=== PATIENT | male | born 1965 | race Hispanic/Latino ===

== ENCOUNTER 2020-09-22 18:41 | Inpatient (IN) | payer SELFPAY ==
[~2020-09-22] VITALS: Ht 170.2 cm; Wt 88.5 kg
[2020-09-22 18:56] LABS: APPEARANCE,URINE Clear (CLEAR); BILIRUBIN,URINE Negative (NEGATIVE); COLOR,URINE Yellow (YELLOW); GLUCOSE, URINE (UA) >=1000 mg/dL (NEGATIVE); KETONES,URINE Negative (NEGATIVE); LEUKOCYTE ESTERASE ,URINE Negative (NEGATIVE); NITRATE,URINE Negative (NEGATIVE); OCCULT BLOOD,URINE Negative (NEGATIVE); PH,URINE 6.5 (5.0-8.0); PROTEIN,URINE Negative (NEGATIVE); UROBILINOGEN,URINE 0.2 mg/dL (0.2-1.0)
[2020-09-22 19:02] LABS: BACTERIA,URINE Rare /HPF (None Seen); RBC,URINE 0-1 /HPF (0-1); SQUAMOUS EPITHELIAL CELL,UR Rare /HPF (0-2); WBC,URINE 0-1 /HPF (0-1); YEAST,URINE BUDDING Rare /HPF (None Seen)
[2020-09-22 19:04] LABS: BASOPHILS % (AUTO) 0.9 % (0.0-5.0); EOSINOPHILS % (AUTO) 3.1 % (0.0-8.0); HEMATOCRIT 44.5 % (42-54); LYMPHOCYTES % (AUTO) 35.5 % (21.0-51.0); MEAN CORPUSCULAR HEMOGLOBIN 30.6 pg (27.0-33.0); MEAN CORPUSCULAR HGB CONC 34.8 g/dL (32.0-36.0); MEAN CORPUSCULAR VOLUME 87.8 fL (79-99); MONOCYTES % (AUTO) 8.3 % (3.0-13.0); PLATELET COUNT (AUTO) 205 K/uL (130-400); RED BLOOD CELL COUNT(AUTO) 5.07 MIL/uL (4.50-6.20); RED CELL DISTRIBUTION WIDTH 11.7 % (11.0-15.5); WHITE BLOOD COUNT (AUTO) 4.5 K/uL (4.8-10.8)
[2020-09-22 19:26] LABS: B-TYPE NATRIURETIC PEPTIDE 20 pg/mL (0-100); INR 0.94 (0.85-1.15); PROTHROMBIN TIME 10.3 SEC (9.6-11.6)
[2020-09-22] MEDS ORDERED: NIFEDIPINE 10 MG CAP ONE (19:26)
[2020-09-22] MEDS ORDERED: INSULIN HUMULIN R 100 UNIT/ML 3ML ONE (19:26)
[2020-09-22] MEDS ORDERED: SODIUM CHLORIDE 0.9% 1000ML 1,000 ML IV ONE (19:27)
[2020-09-22 19:28] LABS: PARTIAL THROMBOPLASTIN TIME 23.9 SEC (26.3-35.5)
[2020-09-22 19:36] LABS: BILIRUBIN,TOTAL 0.3 mg/dL (0.2-1.0); CREATININE 1.1 mg/dL (0.5-1.5); TOTAL PROTEIN, SERUM 7.4 g/dL (6.0-8.3)
[2020-09-22 20:03] LABS: ALBUMIN 4.1 g/dL (3.5-5.0); POTASSIUM 4.6 mmol/L (3.5-5.1)
[2020-09-22] MEDS ORDERED: ASPIRIN 325 MG TABLET ONE (20:31)
[2020-09-22] MEDS ORDERED: NITROGLYCERIN 1GM/1 INCH PACKET TD ONE (20:32)
[2020-09-22] MEDS ORDERED: MORPHINE SULFATE 2 MG/ML 1ML SYG IV PRN (21:00)
[2020-09-22] MEDS: METOPROLOL TARTRATE 25 MG TAB PO SCH (21:00)
[2020-09-22] MEDS ORDERED: SODIUM CHLORIDE 0.9% 1000ML 1,000 ML IV SCH (21:00)
[2020-09-22] MEDS ORDERED: ACETAMINOPHEN 325 MG TAB PO PRN ×2 (21:00)
[2020-09-22] MEDS ORDERED: ONDANSETRON HCL 4 MG/2 ML VIAL IV PRN (21:00)
[2020-09-22 21:29] LABS: CHOLESTEROL 285 mg/dL (<200); HDL CHOLESTEROL 41 mg/dL (29-71); LDL DIRECT 170 mg/dL (0-99); TRIGLYCERIDES 533 mg/dL (30-200)
[2020-09-22 21:50] LABS: CRP QUANTITATIVE < 2.00 mg/L (0.00-9.0)
[2020-09-22] MEDS ORDERED: METOPROLOL TARTRATE 25 MG TAB ONE (22:09)
[2020-09-22] MEDS ORDERED: NITROGLYCERIN 1GM/1 INCH PACKET TD SCH (22:15)
[2020-09-23 05:32] LABS: BASOPHILS % (AUTO) 1.1 % (0.0-5.0); EOSINOPHILS % (AUTO) 3.1 % (0.0-8.0); HEMATOCRIT 41.7 % (42-54); LYMPHOCYTES % (AUTO) 33.6 % (21.0-51.0); MEAN CORPUSCULAR HGB CONC 34.5 g/dL (32.0-36.0); MEAN CORPUSCULAR VOLUME 89.9 fL (79-99); MONOCYTES % (AUTO) 10.2 % (3.0-13.0); NEUTROPHILS % (AUTO) 51.8 % (40.0-77.0); PLATELET COUNT (AUTO) 196 K/uL (130-400); RED BLOOD CELL COUNT(AUTO) 4.64 MIL/uL (4.50-6.20); RED CELL DISTRIBUTION WIDTH 11.9 % (11.0-15.5); WHITE BLOOD COUNT (AUTO) 4.5 K/uL (4.8-10.8)
[2020-09-23 05:44] LABS: ALBUMIN 3.8 g/dL (3.5-5.0); BILIRUBIN,TOTAL 0.5 mg/dL (0.2-1.0); CREATININE 0.8 mg/dL (0.5-1.5); POTASSIUM 4.6 mmol/L (3.5-5.1); TOTAL PROTEIN, SERUM 6.3 g/dL (6.0-8.3)
[2020-09-23] MEDS: INSULIN HUMULIN R 100 UNIT/ML 3ML SQ SCH ×5 (06:00→20:23)
[2020-09-23] MEDS ORDERED: INSULIN HUMULIN R 100 UNIT/ML 3ML SQ SCH (07:30)
[2020-09-23 08:27] LABS: HEMOGLOBIN A1C 10.7 % (4.0-6.0)
[2020-09-23] MEDS ORDERED: ATORVASTATIN CALCIUM 10 MG TABLET ONE (08:32)
[2020-09-23] MEDS ORDERED: METOPROLOL TARTRATE 25 MG TAB ONE (08:33)
[2020-09-23] MEDS ORDERED: HEPARIN SODIUM 5000UNIT/ML 1ML VIAL ONE (08:33)
[2020-09-23] MEDS ORDERED: ONDANSETRON HCL 4 MG/2 ML VIAL ONE (08:33)
[2020-09-23] MEDS ORDERED: MORPHINE SULFATE 2 MG/ML 1ML SYG ONE (08:34)
[2020-09-23] MEDS: ATORVASTATIN CALCIUM 10 MG TABLET PO SCH (09:00)
[2020-09-23] MEDS: HEPARIN SODIUM 5000UNIT/ML 1ML VIAL SQ SCH ×2 (09:00→20:19)
[2020-09-23] MEDS: METOPROLOL TARTRATE 25 MG TAB PO SCH ×2 (09:00→20:17)
[2020-09-23] MEDS ORDERED: INSULIN HUMULIN R 100 UNIT/ML 3ML ONE (11:40)
[2020-09-23 16:30] VITALS: BP 119/77
[2020-09-23] MEDS ORDERED: AMLODIPINE BESYLATE 5 MG TAB PO SCH (17:45)
[2020-09-23 20:00] VITALS: BP 105/67
[2020-09-23] MEDS: INSULIN GLARGINE 100 UNITS/ML 10 ML VIAL SQ SCH (20:20)
[2020-09-23] MEDS ORDERED: REGADENOSON 0.4 MG/5 ML PF SYG IVP SCH (21:15)
[2020-09-23 23:40] VITALS: BP 113/71
[2020-09-24 03:50] VITALS: BP 118/61
[2020-09-24 05:42] LABS: BASOPHILS % (AUTO) 0.6 % (0.0-5.0); HEMATOCRIT 40.9 % (42-54); LYMPHOCYTES % (AUTO) 36.7 % (21.0-51.0); MEAN CORPUSCULAR HEMOGLOBIN 30.2 pg (27.0-33.0); MEAN CORPUSCULAR HGB CONC 33.7 g/dL (32.0-36.0); MEAN CORPUSCULAR VOLUME 89.5 fL (79-99); MONOCYTES % (AUTO) 10.4 % (3.0-13.0); NEUTROPHILS % (AUTO) 48.3 % (40.0-77.0); PLATELET COUNT (AUTO) 172 K/uL (130-400); RED BLOOD CELL COUNT(AUTO) 4.57 MIL/uL (4.50-6.20); RED CELL DISTRIBUTION WIDTH 11.5 % (11.0-15.5); WHITE BLOOD COUNT (AUTO) 4.7 K/uL (4.8-10.8)
[2020-09-24 05:48] LABS: POTASSIUM 3.9 mmol/L (3.5-5.1)
[2020-09-24] MEDS: INSULIN HUMULIN R 100 UNIT/ML 3ML SQ SCH ×4 (06:45→20:02)
[2020-09-24 07:59] VITALS: BP 112/73
[2020-09-24] MEDS: HEPARIN SODIUM 5000UNIT/ML 1ML VIAL SQ SCH ×2 (09:00→21:23)
[2020-09-24] MEDS ORDERED: AMLODIPINE BESYLATE 5 MG TAB PO SCH (09:00)
[2020-09-24 13:41] VITALS: BP 121/77
[2020-09-24] MEDS: ATORVASTATIN CALCIUM 10 MG TABLET PO SCH (14:09)
[2020-09-24] MEDS: METOPROLOL TARTRATE 25 MG TAB PO SCH (14:10)
[2020-09-24] MEDS: ASPIRIN 325MG EC TAB 325 MG TABLET.DR PO SCH (14:11)
[2020-09-24 16:19] VITALS: BP 156/101
[2020-09-24] MEDS ORDERED: METOPROLOL TARTRATE 25 MG TAB PO SCH ×2 (17:30)
[2020-09-24] MEDS ORDERED: LISINOPRIL 10 MG TABLET PO SCH (17:30)
[2020-09-24] MEDS: LISINOPRIL 10 MG TABLET PO SCH (17:59)
[2020-09-24 20:00] VITALS: BP 135/87
[2020-09-24] MEDS ORDERED: ATORVASTATIN CALCIUM 40 MG TABLET PO SCH (21:00)
[2020-09-24] MEDS: INSULIN GLARGINE 100 UNITS/ML 10 ML VIAL SQ SCH (21:23)
[2020-09-24 23:54] VITALS: BP 90/56
[2020-09-25 03:49] VITALS: BP 90/61
[2020-09-25] MEDS: INSULIN HUMULIN R 100 UNIT/ML 3ML SQ SCH ×2 (06:03→12:00)
[2020-09-25 07:30] VITALS: BP_SYST 115; BP_SYST 87; BP_DIAS 52; BP_DIAS 67
[2020-09-25] MEDS ORDERED: METOPROLOL TARTRATE 50 MG TAB PO SCH (09:00)
[2020-09-25] MEDS: ATORVASTATIN CALCIUM 10 MG TABLET PO SCH (09:00)
[2020-09-25] MEDS: ASPIRIN 325MG EC TAB 325 MG TABLET.DR PO SCH (09:23)
[2020-09-25] MEDS: LISINOPRIL 10 MG TABLET PO SCH (09:27)
[2020-09-25] MEDS: HEPARIN SODIUM 5000UNIT/ML 1ML VIAL SQ SCH (09:28)
[2020-09-25 11:00] VITALS: BP 103/62
[2020-09-25] MEDS ORDERED: ASPI-1197 PO (13:28)
[2020-09-25] MEDS ORDERED: METF-444 PO (13:28)
[2020-09-25] MEDS ORDERED: LISI20TA24 PO (13:28)
[2020-09-25] MEDS ORDERED: GLIP5TAB11 PO (13:28)
[2020-09-25] MEDS ORDERED: ATOR40TA69 PO (13:28)
[2020-09-25] MEDS ORDERED: METO50TA18 PO (13:28)
[2020-09-25] MEDS ORDERED: ATORVASTATIN CALCIUM 20 MG TABLET PO SCH (21:00)
== END 2020-09-25 16:05 | disposition home or self-care (01) | DRG 303 ==
LOC: EDH 18:41 → EDHIP 18:42 → 3BH 09-23 16:40
PROVIDERS: ADMIT Internal Medicine; ATTEND Internal Medicine
DX: I25.110 Atherosclerotic heart disease of native coronary artery with unstable angina pectoris (principal); E78.5 Hyperlipidemia, unspecified; I10 Essential (primary) hypertension; I16.0 Hypertensive urgency; E11.9 Type 2 diabetes mellitus without complications; Z95.5 Presence of coronary angioplasty implant and graft; Z91.19 Patient's noncompliance with other medical treatment and regimen; Z95.1 Presence of aortocoronary bypass graft; Z91.14 Patient's other noncompliance with medication regimen; Z87.891 Personal history of nicotine dependence; Z82.49 Family history of ischemic heart disease and other diseases of the circulatory system; Z91.041 Radiographic dye allergy status; Z20.822 Contact with and (suspected) exposure to COVID-19
CPT/HCPCS: 36415; 71045; 78452; 80048; 80053; 80061; 81001; 82010; 82550; 82948; 83036; 83880; 84484; 85025; 85610; 85730; 86140; 87426; 93005; 93017; 93306; 93356; 96374; A9500; G0378; J1644; J1815; J2405; J2785; J7030; U0003

== ENCOUNTER 2022-01-19 14:51 | Inpatient (IN) | payer OTHER ==
[~2022-01-19] VITALS: Ht 167.6 cm; Wt 80.7 kg
[~2022-01-19 14:51] MED LIST: ASPI-1197 PO; ATOR40TA69 PO; GLIP5TAB11 PO; LISI20TA24 PO; METF-444 PO; METO50TA18 PO
[2022-01-19 15:27] LABS: BASOPHILS % (AUTO) 0.5 % (0.0-5.0); EOSINOPHILS % (AUTO) 2.7 % (0.0-8.0); HEMATOCRIT 36.3 % (42-54); LYMPHOCYTES % (AUTO) 17.8 % (21.0-51.0); MEAN CORPUSCULAR HEMOGLOBIN 29.9 pg (27.0-33.0); MEAN CORPUSCULAR HGB CONC 35.5 g/dL (32.0-36.0); MONOCYTES % (AUTO) 7.7 % (3.0-13.0); NEUTROPHILS % (AUTO) 70.9 % (40.0-77.0); PLATELET COUNT (AUTO) 215 K/uL (130-400); RED BLOOD CELL COUNT(AUTO) 4.32 MIL/uL (4.50-6.20); RED CELL DISTRIBUTION WIDTH 11.3 % (11.0-15.5); WHITE BLOOD COUNT (AUTO) 8.1 K/uL (4.8-10.8)
[2022-01-19] MEDS ORDERED: LACTATED RINGERS 1000ML 1,000 ML IV SCH (15:30)
[2022-01-19 16:30] LABS: ALBUMIN 2.8 g/dL (3.5-5.0); CREATININE 0.5 mg/dL (0.5-1.5); POTASSIUM 3.2 mmol/L (3.5-5.1); TOTAL PROTEIN, SERUM 5.9 g/dL (6.0-8.3)
[2022-01-19] MEDS ORDERED: ONDANSETRON 4MG INJ ONE (18:09)
[2022-01-19] MEDS ORDERED: ONDANSETRON 4MG INJ IVP ONE (18:30)
[2022-01-19] MEDS ORDERED: MORPHINE 4 MG SYG IVP PRN (19:00)
[2022-01-19] MEDS ORDERED: ONDANSETRON 4MG INJ IVP PRN (19:00)
[2022-01-19] MEDS ORDERED: 0.9%NACL 1000ML 1,000 ML IV SCH (19:00)
[2022-01-19] MEDS: 0.9%NACL 1000ML 1,000 ML IV SCH (21:44)
[2022-01-19] MEDS: METOCLOPRAMIDE 10 MG/2 ML VIAL IVP SCH ×2 (21:44→23:51)
[2022-01-19] MEDS: KETOROLAC 15MG/ML VIAL (15MG/ML) IM PRN (21:45)
[2022-01-20] VITALS (7 sets, daily range): BP systolic 159–186; BP diastolic 71–98
[2022-01-20] MEDS: ONDANSETRON 4MG INJ IVP PRN ×2 (01:09→10:27)
[2022-01-20] MEDS: METOCLOPRAMIDE 10 MG/2 ML VIAL IVP SCH ×3 (06:00→17:19)
[2022-01-20] MEDS: KETOROLAC 15MG/ML VIAL (15MG/ML) IM PRN ×2 (10:28→20:33)
[2022-01-20] MEDS: 0.9%NACL 1000ML 1,000 ML IV SCH ×2 (15:17→20:29)
[2022-01-20] MEDS: LACTULOSE 20 GM/30 ML UDCUP PO SCH (20:28)
[2022-01-21] MEDS: METOCLOPRAMIDE 10 MG/2 ML VIAL IVP SCH ×3 (00:14→11:39)
[2022-01-21] MEDS: LACTULOSE 20 GM/30 ML UDCUP PO SCH ×2 (02:00→08:00)
[2022-01-21] MEDS: ONDANSETRON 4MG INJ IVP PRN (02:25)
[2022-01-21] MEDS: 0.9%NACL 1000ML 1,000 ML IV SCH (03:30)
[2022-01-21 04:22] VITALS: BP 169/93
[2022-01-21] MEDS: KETOROLAC 15MG/ML VIAL (15MG/ML) IM PRN (06:39)
[2022-01-21 08:00] VITALS: BP 131/81
[2022-01-21 11:43] VITALS: BP 144/79
== END 2022-01-21 15:55 | disposition home or self-care (01) | DRG 641 ==
LOC: EDH 14:51 → EDHIP 18:31 → 3AH 01-20 00:45 → 3BH 01-20 01:16
PROVIDERS: ADMIT Internal Medicine; ATTEND Internal Medicine
DX: E86.0 Dehydration (principal); C15.9 Malignant neoplasm of esophagus, unspecified; R13.10 Dysphagia, unspecified; K29.70 Gastritis, unspecified, without bleeding; Z85.6 Personal history of leukemia
CPT/HCPCS: 36415; 74176; 80053; 82550; 82948; 83690; 84484; 85025; 93005; G0378; J1885; J2270; J2405; J2765; J7030